=== PATIENT | female | born 1980 | race Caucasian/White ===

== ENCOUNTER → 2021-11-12 13:42 | Outpatient (BNVA) | payer BC, MEDICAID, SELFPAY | PROVIDERS: Family Provider Nurse Practitioner; PCP Nurse Practitioner; Visit Provider Obstetrics & Gynecology | DX: A63.0 Anogenital (venereal) warts (principal) | CPT/HCPCS: 88305 ==

== ENCOUNTER → 2021-12-10 10:18 | Outpatient (BNVA) | payer BC, MEDICAID, SELFPAY | PROVIDERS: Family Provider Nurse Practitioner; PCP Nurse Practitioner; Visit Provider Obstetrics & Gynecology | DX: R33.9 Retention of urine, unspecified (principal); R35.0 Frequency of micturition | CPT/HCPCS: 81000; 87086 ==

== ENCOUNTER 2022-01-19 10:39 | Observation (INO) | payer BC, MEDICAID, SELFPAY ==
[2022-01-18 10:28] VITALS: BMI 32.8
[2022-01-19] VITALS (14 sets, daily range): BP systolic 121–167; BP diastolic 73–105; PULSE 55–82; RESP 15–18; TEMP 36.3–36.9; O2SAT 92–100
--- NOTE | 2022-01-19 07:06 | W.PM.OPSUD ---
Surgery/Procedure H&P Update DATE OF PROCEDURE: January 19, 2022 DATE H&P PERFORMED: 01/13/22 H&P UPDATE INFORMATION: I have reviewed H&P completed within last 30 days, I have examined patient prior to procedure and No changes to prior documentation PREOP DIAGNOSIS: uterine prolapse PLANNED PROCEDURE: Operation Date: 01/19/22 08:00 Proposed Procedures p Laparoscopic assisted vaginal hysterectomy, bilateral salpingectomy 32535,N81.4(Not Applicable) - Daisy Gaitan MD s Laparoscopic Salpingectomy(Bilateral) - Daisy Gaitan MD Related Problem List Diagnoses (1) Uterine prolapse: (2) Cervical warts:
[2022-01-19] MEDS: acetaminophen 1,000 MG/100 ML PIGGYBACK 400 MG IV (07:13)
[2022-01-19] MEDS: scopolamine 1.5 Patch 1 PATCH TRANSDERMA (07:18)
[2022-01-19] MEDS: phenazopyridine 100 mg Tablet 200 MG PO (07:18)
[2022-01-19] MEDS: CELEcoxib 200 mg Capsule 400 MG PO (07:18)
[2022-01-19] MEDS: gabapentin 300 mg Capsule PO (07:19)
[2022-01-19] MEDS: sodium chloride 0.9% 1,000 ML 30 ML IV (07:20)
[2022-01-19 07:31] LABS: OR HCG Qualitative Urine Negative (Negative)
[2022-01-19 07:44] LABS: Basophils % 0.4 %; Eosinophils # 0.1 10^3/uL (0.0-0.8); Eosinophils % 1.5 %; Hematocrit 42.3 % (37.0-47.0); Lymphocytes # 1.7 10^3/uL (0.8-4.8); Lymphocytes % 22.5 %; Mean Corpuscular HGB Conc 33.1 g/dL (30.0-36.0); Mean Corpuscular Hemoglobin 29.9 pg (28.0-34.0); Mean Corpuscular Volume 90.2 fl (81-99); Mean Platelet Volume 11.6 fL (7.4-10.4); Monocytes # 0.8 10^3/uL (0.2-0.9); Monocytes % 10.9 %; Neutrophils % 64.6 %; Nucleated Red Blood Cells % 0 %; Platelet Count 278 10^3/cmm (130-400); Red Blood Count 4.69 10^6/uL (4.1-5.3); Red Cell Distribution Width 13.2 % (12.1-15.1); White Blood Count 7.4 10^3/uL (4.0-10.0)
--- NOTE | 2022-01-19 07:54 | ANES.PREANE2 ---
Pre-Anesthetic Assessment Height/Weight: Height 1.73 m Weight 97.976 kg Temp Pulse Resp BP Pulse Ox O2 Del Method 97.5 F L 69 18 165/98 97 01/19/22 06:57 01/19/22 06:57 01/19/22 06:57 01/19/22 06:57 01/19/22 06:57 01/19/22 07:01 Preop Diagnosis: uterine prolapse Operation Date: 01/19/22 08:00 Proposed Procedures p Laparoscopic assisted vaginal hysterectomy, bilateral salpingectomy 27505,N81.4(Not Applicable) - Daisy Gaitan MD s Laparoscopic Salpingectomy(Bilateral) - Daisy Gaitan MD Familial anesthetic complications: None Was Beta Josselyn taken within 24 hours: N/A Was Clonidine taken within 24 hours: N/A Last intake: Intake Last Liquid Date 01/18/22 Last Liquid Time 19:00 Last Solid Date 01/18/22 Last Solid Time 19:00 Social Tobacco and No alcohol Exam alert, oriented x 3, clear to auscultation bilaterally and regular rate & rhythm Airway Submandibular: within normal limits Cervical ROM: within normal limits Mallampati: Class II Dentition: full History/ROS No significant complaints Pulmonary None reported CV/HEM Hypertension Uterine prolapse Hepatic None reported GI None reported Metabolic Obesity Musc/skel Fibromyalgia Neuropsych None reported Anesthetic Plan ASA status: 3 (41 year old smoker with obesity, HTN, fibromyalgia and uterine prolapse. ) Anesthesia: Anesthesia Evaluation and General Other: We discussed risk and benefits of general anesthesia including PONV, sore throat (sometimes severe), corneal abrasion, positioning and peripheral nerve injuries, life threatening allergic reaction, post operative ICU admission requiring prolonged intubation, stroke, heart attack, , and rare incidences of recall. Patient consents to proceed with general anesthesia. Risk of > 500 ml blood loss (7ml/kg in children): No Medications/Allergies Home Medications Medication Instructions Recorded Confirmed Last Taken Type venlafaxine 37.5 mg tablet 37.5 mg PO DAILY 11/12/21 01/18/22 Unknown History Allergies Allergy/AdvReac Type Severity Reaction Status Date / Time No Known Allergies Allergy Verified 01/13/22 14:41 Current Medications Generic Name Dose Route Start Last Admin Trade Name Freq PRN Reason Stop Dose Admin Sodium Chloride 1,000 mls @ 30 mls/hr 01/19/22 06:45 08/09/22 07:20 Sodium Chloride 0.9% IV 01/20/22 06:44 30 mls/hr .Q24H CHATO Administration PFSH Anesthesia Medical History Fibromyalgia (~2014) Hypertension (~2015) Surgical History H/O knee surgery (~1995) H/O tubal ligation (~2005) Hx of cholecystectomy (~2017) Family History Mother Hypertension Father Hypertension Stroke Denies family history of Colon cancer Ovarian cancer Diabetes Heart disease Breast cancer Uterine cancer Thyroid disease Female Reproductive History Date of last menstrual period: 01/02/22 Data Anesthesia : 01/19/22 07:18 01/19/22 07:18 Short CBC 01/19/22 Range/Units 07:18 WBC 7.4 (4.0-10.0) 10^3/uL Hgb 14.0 (11.5-15.3) g/dL Hct 42.3 (37.0-47.0) % MCV 90.2 (81-99) fl Plt Count 278 (130-400) 10^3/cmm Neut % (Auto) 64.6 % Neut # (Auto) 4.80 (1.8-7.7) 10^3/uL Cardiac Studies: No Data to Display
[2022-01-19 08:02] LABS: Blood Urea Nitrogen 5 mg/dL (6-20); Carbon Dioxide 22 mmol/L (22-29); Chloride 107 mmol/L (98-107); Glomerular Filtration Rate 92.7 mL/min (90-130); Glucose 91 mg/dL (65-115); Osmolality Calculated 287 mOsm/kg (285-295); Sodium 140 mmol/L (136-145)
[2022-01-19 08:04] LABS: Anion Gap 15.2 (5-19); Potassium 4.2 mmol/L (3.5-5.1)
[2022-01-19] MEDS: ceFAZolin 2,000 MG in sodium chloride 0.9% (plus) 50 ML 100 MG IV ×2 (08:23→16:41)
[2022-01-19] MEDS: vasopressin 20 unit/mL INJ INJECTION (09:10)
--- NOTE | 2022-01-19 10:30 | P.OP_ITS ---
Operative Report Date of procedure: January 19, 2022 Pre-op diagnosis: Preop Diagnosis uterine prolapse Post-op diagnosis: same Post-op findings: same with abdominal adhesions, endometriosis, uterine fibroids Procedure done: LAVH with BSO Specimens removed/disposition: uterus, tubes, ovaries to pathology Surgeon: Daisy Gaitan Anesthesia: General Estimated blood loss (mL): 200 IV fluids (mL): 1,200 Urine output (mL): 500 Complications: none Findings: 8 week sized uterus, with visible fibroids, visible endometriosis, normal appearing tubes and ovaries. evidency or prior tubal ligation. adhesions of omentum to abdominal wall. Condition: stable Disposition: PACU Procedure: The patient was taken to the operating room where general anesthesia was administered and found to be adequate. She was prepped and draped in the normal sterile fashion in the dorsal lithotomy position in [facility]. A Owusu catheter was placed. A weighted speculum was placed into the vagina and the anterior lip of the cervix was grasped with a single tooth tenaculum. The Zumi uterine manipulator was placed. The weighted speculum was removed. The gloves were changed and attention was turned to the abdomen. A 5 mm supraumbilical incision was made. Using a 5 mm port with the camera, the port was placed into the abdomen. The abdomen was insufflated. Two low, lateral 5 mm ports were placed on the left and right under direct visualization from the camera. The right tube was grasped and elevated. Using the laparoscopic cautery, the infundibulopelvic ligament was cauterized and cut lateral to the ovary. This was performed the same way on the left. The uteroovarian ligaments as well as the round ligaments were ligated. Attention was then turned to the vaginal portion of the procedure. The weighted speculum was placed into the vagina. The zumi manipulator was removed. The single tooth tenaculum was removed and replaced with the caesar's tenaculum. 10 mL of dilute Pitressin was injected at the vesicovaginal junction. A circumferential incision was made at the vesicovaginal junction and the vaginal mucosa reflected cephalad. The posterior peritoneum was entered sharply with the Metzenbaum scissors and the long weighted speculum replaced. Using the John clamps the uterosacral ligaments were clamped cut and suture- ligated. The anterior peritoneum was entered sharply with the metzenbaum scissors. Then sequentially the uterine arteries and cardinal ligaments were clamped cut and suture-ligated. A single-tooth tenaculum was used to deliver the uterus. The remaining segement of the utero-ovarian ligaments were clamped cut and suture-ligated bilaterally and the specimen was removed. There was good hemostasis with only mild bleeding from the cuff. The peritoneum was closed with a pursestring using 2-0 Vicryl. The vaginal cuff was closed with 0 Vicryl in a running locked pattern incorporating the uterosacral ligaments into the lateral aspects of the vaginal cuff. The Owusu catheter was removed and the cystoscope advanced into the bladder. The patient was given pyridium and bilateral spill was noted. There were no injuries or deficits noted in the bladder. The cystoscope was removed and the Owusu was replaced. Vaginal packing was placed for good hemostasis. The gloves and gowns were changed and attention was turned to the abdomen. The ports were closed with 2-0 monocryl with skin glue. The patient tolerated the procedure well. Sponge lap and needle counts were correct x3. She was taken to the recovery room in stable condition.
[2022-01-19] MEDS: labetalol 5 mg/mL SDV 20mL 10 MG IVP (10:56)
[2022-01-19] MEDS: ondansetron 2 mg/ML SDV 2 mL 4 MG IVP (11:13)
[2022-01-19] MEDS: ketorolac 30 mg/mL INJ IVP ×3 (11:59→22:56)
[2022-01-19] MEDS: lactated ringers 1,000 ML 125 ML IV ×2 (11:59→20:45)
--- NOTE | 2022-01-19 14:29 | ANE.PACU2 ---
Inpatient post-anesthesia follow up: Airway intact: Yes Vital signs: Temperature 97.3 F Pulse Rate 60 Respiratory Rate 16 Blood Pressure 131/88 Pulse Oximetry 93 Oxygen Delivery Me thod Room Air Oxygen Flow Rate Fraction of Inspir ed Oxygen Hydration adequate: Yes Nausea and vomiting: No Pain level: 3 Mental status: Baseline
[2022-01-19] MEDS: docusate sodium 100 mg Capsule PO (18:28)
[2022-01-20] MEDS: ceFAZolin 2,000 MG in sodium chloride 0.9% (plus) 50 ML 100 MG IV (00:08)
[2022-01-20] MEDS: ketorolac 30 mg/mL INJ IVP (04:23)
[2022-01-20 04:32] VITALS: BP 124/81; PULSE 78; RESP 17; TEMP 36.9; O2SAT 95
[2022-01-20 04:48] LABS: Hematocrit 34.9 % (37.0-47.0); Hemoglobin 11.7 g/dL (11.5-15.3); Mean Corpuscular HGB Conc 33.5 g/dL (30.0-36.0); Mean Corpuscular Hemoglobin 30.7 pg (28.0-34.0); Mean Corpuscular Volume 91.6 fl (81-99); Mean Platelet Volume 11.3 fL (7.4-10.4); Platelet Count 241 10^3/cmm (130-400); Red Blood Count 3.81 10^6/uL (4.1-5.3); Red Cell Distribution Width 13.4 % (12.1-15.1); White Blood Count 15.5 10^3/uL (4.0-10.0)
--- NOTE | 2022-01-20 08:45 | PM.DCS ---
Discharge Providers Date of Admission: 01/19/22 10:39 Date of Discharge: January 20, 2022 Attending Provider at Admission: Daisy Gaitan MD Attending Provider at Discharge: Daisy Gaitan MD Primary Care Provider: JOHN Bose Diagnoses at Discharge Discharge Diagnosis (1) Uterine prolapse: Status: Acute (2) Cervical warts: Status: Acute Reason for Visit Reason for Visit: Uterine Prolapse Hospital Course Hospital Course The patient was admitted for surgery. Surgery was uncomplicated and she was ready for discharge on day #1 Physical Exam Narrative: doing well today. No concerns. tolerating a regular diet. ambulating without difficulty, pain is well controlled on toradol. Const: COMMON NORMALS: no acute distress, patient oriented x3, no limitations, healthy appearing, alert and well nourished GENERAL APPEARANCE: cooperative, comfortable, well kempt and well developed ORIENTATION/CONSCIOUSNESS: Yes awake, Yes oriented to person, Yes oriented to place and Yes oriented to time Resp: COMMON NORMALS: normal respiratory effort EFFORT & INSPECTION: Yes able to speak in complete sentences GI: COMMON NORMALS: Soft to palpation and non-tender PALPATION: Yes Soft to palpation Extremity: COMMON NORMALS: no calf tenderness Neuro: COMMON NORMALS: patient oriented x3 SENSORIUM/ORIENTATION: Yes alert, Yes oriented to person, Yes oriented to place and Yes oriented to time Psych: APPEARANCE: Yes well kempt Urinary Catheter Management: Owusu Latex: Cath Placed During This Visit: yes Reason for Continuing Indwelling Catheter: Perioperative Use in Selected Surgeries Urinary Catheter Date of Insertion: 01/19/22 Urinary Catheter Time of Insertion: 08:58 Discharge Data Studies Completed and Pending Pending at discharge Category Date Time Status ES surgery / GI images Routine Exams 01/19/22 08:08 Taken Urine Culture Routine Lab 01/19/22 08:58 Received Pathology: Surgical [PTH] Routine Pth 01/19/22 10:38 Received Laboratory Results WBC 15.5 10^3/uL (4.0-10.0) H 01/20/22 04:30 RBC 3.81 10^6/uL (4.1-5.3) L 01/20/22 04:30 Hgb 11.7 g/dL (11.5-15.3) 01/20/22 04:30 Hct 34.9 % (37.0-47.0) L 01/20/22 04:30 MCV 91.6 fl (81-99) 01/20/22 04:30 MCH 30.7 pg (28.0-34.0) 01/20/22 04:30 MCHC 33.5 g/dL (30.0-36.0) 01/20/22 04:30 RDW 13.4 % (12.1-15.1) 01/20/22 04:30 Plt Count 241 10^3/cmm (130-400) 01/20/22 04:30 MPV 11.3 fL (7.4-10.4) H 01/20/22 04:30 Neut % (Auto) 64.6 % 01/19/22 07:18 Lymph % (Auto) 22.5 % 01/19/22 07:18 [place] % (Auto) 10.9 % 01/19/22 07:18 Eos % (Auto) 1.5 % 01/19/22 07:18 Baso % (Auto) 0.4 % 01/19/22 07:18 Neut # (Auto) 4.80 10^3/uL (1.8-7.7) 01/19/22 07:18 Lymph # (Auto) 1.7 10^3/uL (0.8-4.8) 01/19/22 07:18 [place] # (Auto) 0.8 10^3/uL (0.2-0.9) 01/19/22 07:18 Eos # (Auto) 0.1 10^3/uL (0.0-0.8) 01/19/22 07:18 Baso # (Auto) 0.0 10^3/uL (0.0-0.1) 01/19/22 07:18 Nucleated RBC % (auto) 0 % 01/19/22 07:18 Nucleated RBCs # 0.0 /100WBC 01/19/22 07:18 Sodium 140 mmol/L (136-145) 01/19/22 07:18 Potassium 4.2 mmol/L (3.5-5.1) 01/19/22 07:18 Chloride 107 mmol/L (98-107) 01/19/22 07:18 Carbon Dioxide 22 mmol/L (22-29) 01/19/22 07:18 Anion Gap 15.2 (5-19) 01/19/22 07:18 BUN 5 mg/dL (6-20) L 01/19/22 07:18 Creatinine 0.7 mg/dL (0.5-0.9) 01/19/22 07:18 GFR Calculation 92.7 mL/min (90-130) 01/19/22 07:18 Glucose 91 mg/dL (65-115) 01/19/22 07:18 Calculated Osmolality 287 mOsm/kg (285-295) 01/19/22 07:18 Calcium 9.0 mg/dL (8.5-10.5) 01/19/22 07:18 Urine HCG, Qual Negative (Negative) 01/19/22 07:30 Blood Type O Positive 01/19/22 07:18 Rho(D) Type Positive 01/19/22 07:18 Antibody Screen Negative 01/19/22 07:18 Vitals Last Vital Signs Temp 98.5 F 01/20/22 04:32 Pulse 78 01/20/22 04:32 Resp 17 01/20/22 04:32 BP 124/81 01/20/22 04:32 Pulse Ox 95 01/20/22 04:32 O2 Del Method 01/20/22 04:32 Discharge Plan Discharge Patient Disposition: Home Condition: Stable Prescriptions: New ibuprofen 800 mg Tablet 800 mg PO Q8H Qty: 30 0RF hydrocodone-acetaminophen 5-325 mg Tablet 1 tab PO Q4H PRN (Reason: Moderate To Severe Pain) Qty: 20 0RF docusate sodium 100 mg Capsule 100 mg PO BID Qty: 60 0RF Continued venlafaxine 37.5 mg tablet 37.5 mg PO DAILY Discharge Orders: Discharge Order (Routine); Ordered 01/20/22 Ordered By: Daisy Gaitan Referrals: Daisy Gaitan MD [Physician] - 01/25/22 8:00 am (1 week post-op: 01/25/22 @8:00. 6 week post-op: 03/03/22 @1:00. ) Patient Instructions: Laparoscopic Hysterectomy (DC), OB Discharge Report, OB Laproscopic Surgery - [facility], OB Food/Drug Interaction Guide, Opioid Safety Discharge Attestations Time Spent in Discharge Care*: less than 30 min Quality Metrics Clinical Quality Measures [ No reported AMI, CVA or VTE this stay] Coding Level of Care Code Acute Chg FW DC note Diagnoses Uterine prolapse N81.4 Cervical warts A63.0
[2022-01-20 09:20] VITALS: BP 150/89; PULSE 70; RESP 18
[2022-01-20] MEDS: docusate sodium 100 mg Capsule PO (09:34)
== END 2022-01-20 09:40 | disposition home or self-care (01) ==
PROVIDERS: Admitting Provider Obstetrics & Gynecology; PCP Nurse Practitioner; Visit Provider Obstetrics & Gynecology
PROC: 0UT9FZZ Resection of Uterus, Via Natural or Artificial Opening With Percutaneous Endoscopic Assistance (ICD-10-PCS; CPT 58554; principal; 2022-01-19 08:00)
PROC: (CPT 58661; 2022-01-19 08:00)
PROC: 0TJB8ZZ Inspection of Bladder, Via Natural or Artificial Opening Endoscopic (ICD-10-PCS; CPT 52000; 2022-01-19 08:00)
DX: N81.4 Uterovaginal prolapse, unspecified (principal); K66.0 Peritoneal adhesions (postprocedural) (postinfection); N80.9 Endometriosis, unspecified; D25.9 Leiomyoma of uterus, unspecified; E66.9 Obesity, unspecified; Z68.32 Body mass index [BMI] 32.0-32.9, adult; M79.7 Fibromyalgia
CPT/HCPCS: 58554; 36415; 80048; 81025; 84703; 85025; 85027; 86850; 86900; 87086; 88305; G0378; J1100; J1885; J2405; J2704; J3010; J3490; J7030

== ENCOUNTER → 2023-01-05 10:03 | Outpatient (BNVA) | payer BC, MEDICAID, SELFPAY | PROVIDERS: PCP Nurse Practitioner; Referring Provider Nurse Practitioner; Visit Provider Specialist | DX: M25.511 Pain in right shoulder (principal); R20.0 Anesthesia of skin; R20.2 Paresthesia of skin | CPT/HCPCS: 73030 ==